=== PATIENT | female | born 1940 | race Caucasian/White ===

== ENCOUNTER 2019-09-02 10:22 | Outpatient (CLI) | payer MEDICARE, OTHER, SELFPAY ==
[2019-09-02 11:07] LABS: Basophils % 0.5 %; Eosinophils # 0.1 10^3/uL (0.0-0.8); Eosinophils % 2.7 %; Hematocrit 36.4 % (37.0-47.0); Hemoglobin 10.7 g/dL (11.5-15.3); Lymphocytes # 1.1 10^3/uL (0.8-4.8); Mean Corpuscular HGB Conc 29.4 g/dL (30.0-36.0); Mean Corpuscular Hemoglobin 24.9 pg (28.0-34.0); Mean Corpuscular Volume 84.8 fL (81-99); Mean Platelet Volume 10.9 fL (7.4-10.4); Monocytes # 0.5 10^3/uL (0.2-0.9); Neutrophils # 2.69 10^3/uL (1.8-7.7); Neutrophils % 60.8 %; Nucleated Red Blood Cells % 0 %; Platelet Count 266 10^3/cmm (130-400); Red Blood Count 4.29 10^6/uL (4.1-5.3); White Blood Count 4.4 10^3/uL (4.0-10.0)
[2019-09-02 11:32] LABS: Carcinoembryonic Antigen 2.1 ng/mL (0.0-4.7)
[2019-09-02 11:43] LABS: Alanine Aminotransferase 17 U/L (0-33); Albumin Level 4.1 g/dL (3.5-5.2); Alkaline Phosphatase 70 IU/L (35-105); Anion Gap 14.2 (5-19); Aspartate Amino Transferase 27 U/L (0-32); Blood Urea Nitrogen 12 mg/dL (8-23); Calcium 8.6 mg/dL (8.5-10.5); Carbon Dioxide 25 mmol/L (22-29); Chloride 103 mmol/L (98-107); Globulin 3.4 g/dL (1.3-4.6); Glucose 113 mg/dL (65-115); Osmolality Calculated 283 mOsm/kg (285-295); Potassium 4.2 mmol/L (3.5-5.1); Sodium 138 mmol/L (136-145); Total Bilirubin 1.8 mg/dL (0.15-1.2); Total Protein 7.5 g/dL (6.6-8.7)
[2019-09-02 13:00] LABS: Iron 18 ug/dL (37-145); Percent Saturation 4.1 % (20-50); Total Iron Binding Capacity 439 mcg/dl; Unsaturated Iron Binding 421 ug/dL (112-347)
--- NOTE | 2019-09-02 13:51 | ONC FU_ITS ---
Dr. Faye Patient Follow-Up Note Patient: Kelsea Wan Unit #: [id number]: 1940 Dicatated By: Mekhi Faye M.D.Date of Visit:Sep 02, 2019 Onc Med Follow-up/Prog Note Chief Complaint: Colon cancer/anemia. History of Present Illness: This is a an 79 year-old woman with multiple colon cancers, including an ascending colon cancer and a subsequent anastomotic recurrence, both of which were moderately differentiated adenocarcinoma, stage IIA (T3, N0, M0). She had presented in May [address] elevation myocardial infarction, for which she underwent emergency angioplasty/stent placement. She also was noted to be significantly anemic at that time and a subsequent colonoscopy showed a malignant appearing mass in the ascending colon. She underwent hand-assisted laparoscopic right hemicolectomy in July of 2010. She had a T3 primary tumor, but no involvement in 28 lymph nodes. There was a second tumor identified in the surgical specimen, but it appeared to be arising within an adenomatous polyp and invasion was limited to the submucosa. I had seen her initially in September of 2010. I felt there was no indication for adjuvant chemotherapy. At that time, she did have a palpable area of induration in the mid abdomen just above her incision. By CT scan it appeared to be inflammatory, and it subsequently did improve. She had surveillance colonoscopy in March 2011. In April 2013 she became anemic again. She was seen by Dr. Molina, and she was found to have evidence of recurrence at the ileocolic anastomosis. On 05/04/13 she underwent a hand-assisted laparoscopic left hemicolectomy. During the procedure, she was noted to have a peritoneal nodule on the dome of the gallbladder, and a cholecystectomy also was performed. In addition, the procedure included bilateral salpingo-oophorectomy due to concerns of possible hereditary non-polyposis colon cancer. She tolerated the procedure well. Pathology showed moderately differentiated (grade 2) colonic adenocarcinoma with invasion focally through the muscularis propria. The tumor measured 3 x 2.5 cm. There was no involvement in 12 lymph nodes. Mismatch Repair Protein analysis showed loss of MLH1 and PMS2 with retention of MSH2 and MSH6, consistent with loss of normal DNA mismatch repair function. She has been followed on observation/expectant management. On a followup visit in May 2014 she was again significantly anemic, with her hemoglobin at that time having dropped to 7.2 g. The red cell indices were hypochromic/microcytic and her serum iron studies showed a transferrin saturation of 1.9%. At that point she did start a course of parenteral iron replacement with Venofer. Treatment was completed on 06/28/14 to a total dose of 2400 mg. In the meantime, she also was found to have a positive stool Hemoccults. In June 2014 she underwent evaluation with upper GI endoscopy and colonoscopy by Dr. Rod Hoffman in [place]. The upper endoscopy showed a large hiatal hernia with possible Arndt's esophagus. There was evidence of antral gastritis with linear erosions. Biopsy showed benign gastric mucosa. Biopsies from the GE junction showed squamous and gastric mucosa with no evidence of metaplasia or dysplasia. The colonoscopy showed polyps at 40 cm and 20 cm as well as a flat lesion in the rectum. A biopsy at 65 cm did show a hyperplastic polyp. Biopsies of the lesions at 40 cm and 20 cm just showed superficial mucosal hyperplasia. The rectal lesion was a superficial adenomatous polyp. Her other medical illnesses include hypertension, hypercholesterolemia, coronary artery disease, and GERD. She is a nonsmoker. INTERIM HISTORY: She had surveillance EGD and colonoscopy again on 07/29/2017. There were no abnormalities noted on either study. She continued on observation/expectant management. Her surveillance CT scans on 06/04/2018 showed no evidence of recurrent or metastatic disease in the chest, abdomen, or pelvis. She is seen for a scheduled visit. She has been feeling fine. She says her energy is pretty good, but she does get tired. ECOG score is 1. She has good appetite. She has no fever or night sweats. She has some allergy related sinus symptoms and she has a little cough sometimes. She does not complain of shortness of breath. She occasionally has a little chest pain. She had one recent episode of nausea. She is not having acid reflux symptoms. She occasionally has diarrhea, but she says her bowels are okay as long as she eats right. She has not been aware of any blood in the stool. Bladder function has been okay. She has some joint pain in her hands, and she also has lower back pain. She does not complain of headache or dizziness. Her fingers get numb with cold exposure. She has no other focal neurologic symptoms. Medications: Aspirin 1 (81 mg) Tablet Oral daily, Biotin 1 (1000 mcg) Capsule Oral daily, Cholecalciferol 1 (1000 Units) Capsule Oral daily, Eye Vitamins 1 Tablet Oral daily, Fish Oil 1 (1000 mg) Capsule Oral daily, Lipitor 1 (40 mg) Tablet Oral at bedtime, Lisinopril 1 (5 mg) Tablet Oral b.i.d., Metoprolol Tartrate 1 (25 mg) Tablet Oral b.i.d., Protonix 1 (40 mg) Tablet, enteric coated Oral b.i.d., Red Yeast Rice 1 (600 mg) Tablet Oral daily Allergies: No Known Allergies. Review of Systems: Constitutional - She is feeling okay. Her energy has been pretty good, but she does get tired. Her appetite is good and weight is down a few pounds. No fever, night sweats, or hot flashes. ECOG score is 1, ENMT - She has chronic allergies. No mouth sores. No sore throat or difficulty swallowing, Hematologic/Lymphatic - She bruises easily, Respiratory - No shortness of breath. She has a slight cough related to drainage. No pleuritic pain or hemoptysis, Cardiovascular - No angina pain. No palpitations, Gastrointestinal - No nausea or vomiting. No heartburn or acid reflux. No diarrhea or constipation. No blood in the stool or black stools, Genitourinary (F) - No dysuria or hematuria. No urinary frequency. No urgency or incontinence, Musculoskeletal - She has pain in her lower back, Integumentary - No skin complications, Neurologic - No headache or dizziness. She has numbness in her fingers with cold exposure. No other focal neurologic symptoms, Psychiatric - No anxiety or depression. She sometimes doesn't sleep well. Vital Signs: Performed on Sep 02, 2019 12:21 Height - 64.00 in Weight - 183.8 lbs (LOW) BSA - 1.89 sq.m BMI - 31.55 (HIGH) Temperature - 97.7 F (LOW) Pulse - 56 /min (LOW) Respiration - 18 /min BP - 116/68 mm(hg) O2 Sat - 100 % Pain - 0 Physical Examination: Constitutional - She looks pretty good generally, Eyes - Sclerae nonicteric. Conjunctivae clear, ENMT - No lesions noted in the oral cavity, Hematologic/Lymphatic - No cervical, clavicular, or axillary adenopathy, Respiratory - Lungs are clear with good air movement bilaterally, Cardiovascular - Heart rhythm is regular. There is a II/ systolic murmur. There is no gallop or rub noted, Abdomen - Soft. Liver and spleen are not enlarged. There is no abdominal mass or ascites noted and there is no inguinal adenopathy, Extremities - Mild edema. Posterior tibial pulses are palpable bilaterally, Neurologic - No focal neurologic deficits noted. Lab/Imaging: Test performed on Sep 02, 2019 11:42 Iron 18 mcg/dL Iron Binding Capacity (TIBC) 439 mcg/dl % Iron Saturation 4.1 % UIBC 421 mcg/dL Test performed on Sep 02, 2019 10:42 Sodium 138 mmol/L Potassium 4.2 mmol/L Chloride 103 mmol/L CO2 25 mmol/L Anion Gap 14.2 BUN 12 mg/dL Creatinine 0.8 mg/dL Cr Clearance (Est) 73.82 mL/min Glucose 113 mg/dL Calcium 8.6 mg/dL Protein, Total 7.5 g/dL Albumin 4.1 g/dL Globulin 3.4 g/dL Bilirubin, Total 1.8 mg/dL ALT (SGPT) 17 U/L AST (SGOT) 27 U/L Alkaline Phosphatase 70 IU/L WBC 4.4 10 3/uL RBC 4.29 10 6/uL HGB 10.7 g/dL HCT 36.4 % MCV 84.8 fL MCH 24.9 pg MCHC 29.4 g/dL RDW 17.0 % Platelet Count 266 10 3/cmm MPV 10.9 fL Neutrophils 2.69 10 3/uL Lymphocytes 1.1 10 3/uL Monocytes 0.5 10 3/uL Eosinophils 0.1 10 3/uL Basophils 0.0 10 3/uL Neutrophil % 60.8 % Lymphocyte % 24.0 % Monocyte % 12.0 % Eosinophil % 2.7 % Basophils % 0.5 % NRBC % 0 % CEA 2.1 ng/mL Impression: 1. Patient with multiple primary colon cancers including stage IIA moderately differentiated adenocarcinoma of the ascending colon, a stage I adenocarcinoma which was discovered within an adenomatous polyp in the right colon, and a stage IIA moderately differentiated adenocarcinoma which developed at the site of the ileocolic anastomosis. 2. Her treatment included laparoscopic right hemicolectomy in July 2010 and laparoscopic left hemicolectomy in April 2013. The latter procedure also included cholecystectomy and bilateral oophorectomy. 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 3. In May 2014 she had recurrence of iron deficiency anemia associated with heme positive stools. The anemia corrected following a course of parenteral iron replacement with Venofer. She did have evidence of antral gastritis on upper endoscopy in June 2014, and there were several polyps noted on colonoscopy, including an adenomatous polyp in the rectum. However, the source of the GI blood loss was not determined with certainty. She has since then continued empiric treatment with Protonix. She reportedly had evidence of GERD again on a recent upper GI endoscopy. Her other medical illnesses include: 4. Hypertension. 5. Hyperlipidemia. 6. Coronary artery disease. She continued on observation/expectant management following the parenteral iron replacement. As of her follow-up visit in May 2018 there was no evidence of recurrence of her colon cancer and her blood counts remained adequate. She presents now with mild anemia. Her serum iron studies are again consistent with iron deficiency. She has mild fatigue. She is otherwise not symptomatic. At this point it is uncertain where the iron deficiency is due to GI blood loss or to inadequate oral iron absorption. There otherwise appears to be no evidence of recurrence of her colon cancer. Plan: She remains on observation for the colon cancer. She will begin oral iron supplementation with ferrous sulfate. I will recheck stool FIT or Hemoccult. She will need GI endoscopy studies if this is positive. If she does not tolerate iron deficiency oral iron or is unable to correct her iron deficiency with it, she will be given parenteral iron replacement with Injectafer. Signed By: Mekhi Faye M.D. <<Signature on File>>
== END 2019-09-02 10:23 | disposition home or self-care (01) ==
LOC: ONCMED 10:28
PROVIDERS: PCP Family Medicine; Visit Provider Internal Medicine Medical Oncology
DX: Z08 Encounter for follow-up examination after completed treatment for malignant neoplasm (principal); Z85.038 Personal history of other malignant neoplasm of large intestine; D50.0 Iron deficiency anemia secondary to blood loss (chronic); I10 Essential (primary) hypertension; E78.5 Hyperlipidemia, unspecified; I25.10 Atherosclerotic heart disease of native coronary artery without angina pectoris; K21.9 Gastro-esophageal reflux disease without esophagitis; Z90.49 Acquired absence of other specified parts of digestive tract
CPT/HCPCS: 80053; 82378; 83540; 83550; 85025; 99214

== ENCOUNTER 2019-10-26 13:36 | Outpatient (CLI) | payer MEDICARE, OTHER, SELFPAY ==
[2019-10-26 14:14] LABS: Basophils % 0.3 %; Eosinophils # 0.1 10^3/uL (0.0-0.8); Eosinophils % 2.1 %; Hematocrit 44.9 % (37.0-47.0); Hemoglobin 13.8 g/dL (11.5-15.3); Lymphocytes # 1.6 10^3/uL (0.8-4.8); Lymphocytes % 27.9 %; Mean Corpuscular HGB Conc 30.7 g/dL (30.0-36.0); Mean Corpuscular Hemoglobin 28.4 pg (28.0-34.0); Mean Corpuscular Volume 92.4 fL (81-99); Mean Platelet Volume 11.3 fL (7.4-10.4); Monocytes # 0.6 10^3/uL (0.2-0.9); Monocytes % 10.1 %; Neutrophils # 3.41 10^3/uL (1.8-7.7); Neutrophils % 59.4 %; Nucleated Red Blood Cells % 0 %; Platelet Count 235 10^3/cmm (130-400); Red Blood Count 4.86 10^6/uL (4.1-5.3); Red Cell Distribution Width 21.9 % (12.1-15.1); White Blood Count 5.7 10^3/uL (4.0-10.0)
[2019-10-26 14:27] LABS: Iron 45 ug/dL (37-145); Percent Saturation 12.7 % (20-50); Total Iron Binding Capacity 353 mcg/dl; Unsaturated Iron Binding 308 ug/dL (112-347)
--- NOTE | 2019-10-30 12:10 | ONC FU_ITS ---
Dr. Faye Patient Follow-Up Note Patient: Kelsea Wan Unit #: [id number]: [id number] Dicatated By: Mekhi Faye M.D.Date of Visit:Oct 26, 2019 Onc Med Follow-up/Prog Note Chief Complaint: Colon cancer/anemia. History of Present Illness: This is a an 79 year-old woman with multiple colon cancers, including an ascending colon cancer and a subsequent anastomotic recurrence, both of which were moderately differentiated adenocarcinoma, stage IIA (T3, N0, M0). She had presented in May [address] elevation myocardial infarction, for which she underwent emergency angioplasty/stent placement. She also was noted to be significantly anemic at that time and a subsequent colonoscopy showed a malignant appearing mass in the ascending colon. She underwent hand-assisted laparoscopic right hemicolectomy in July of 2010. She had a T3 primary tumor, but no involvement in 28 lymph nodes. There was a second tumor identified in the surgical specimen, but it appeared to be arising within an adenomatous polyp and invasion was limited to the submucosa. I had seen her initially in September of 2010. I felt there was no indication for adjuvant chemotherapy. At that time, she did have a palpable area of induration in the mid abdomen just above her incision. By CT scan it appeared to be inflammatory, and it subsequently did improve. She had surveillance colonoscopy in March 2011. In April 2013 she became anemic again. She was seen by Dr. Molian, and she was found to have evidence of recurrence at the ileocolic anastomosis. On 05/04/13 she underwent a hand-assisted laparoscopic left hemicolectomy. During the procedure, she was noted to have a peritoneal nodule on the dome of the gallbladder, and a cholecystectomy also was performed. In addition, the procedure included bilateral salpingo-oophorectomy due to concerns of possible hereditary non-polyposis colon cancer. She tolerated the procedure well. Pathology showed moderately differentiated (grade 2) colonic adenocarcinoma with invasion focally through the muscularis propria. The tumor measured 3 x 2.5 cm. There was no involvement in 12 lymph nodes. Mismatch Repair Protein analysis showed loss of MLH1 and PMS2 with retention of MSH2 and MSH6, consistent with loss of normal DNA mismatch repair function. She has been followed on observation/expectant management. On a followup visit in May 2014 she was again significantly anemic, with her hemoglobin at that time having dropped to 7.2 g. The red cell indices were hypochromic/microcytic and her serum iron studies showed a transferrin saturation of 1.9%. At that point she did start a course of parenteral iron replacement with Venofer. Treatment was completed on 06/28/14 to a total dose of 2400 mg. In the meantime, she also was found to have a positive stool Hemoccults. In June 2014 she underwent evaluation with upper GI endoscopy and colonoscopy by Dr. Rod Hoffman in [place]. The upper endoscopy showed a large hiatal hernia with possible Arndt's esophagus. There was evidence of antral gastritis with linear erosions. Biopsy showed benign gastric mucosa. Biopsies from the GE junction showed squamous and gastric mucosa with no evidence of metaplasia or dysplasia. The colonoscopy showed polyps at 40 cm and 20 cm as well as a flat lesion in the rectum. A biopsy at 65 cm did show a hyperplastic polyp. Biopsies of the lesions at 40 cm and 20 cm just showed superficial mucosal hyperplasia. The rectal lesion was a superficial adenomatous polyp. Her other medical illnesses include hypertension, hypercholesterolemia, coronary artery disease, and GERD. She is a nonsmoker. INTERIM HISTORY: She had surveillance EGD and colonoscopy again on 07/29/2017. There were no abnormalities noted on either study. She continued on observation/expectant management. Her surveillance CT scans on 06/04/2018 showed no evidence of recurrent or metastatic disease in the chest, abdomen, or pelvis. As of her follow-up visit in August 2019 she was mildly anemic again, hemoglobin 10.7 g. The transferrin saturation was low at 4%, consistent with iron deficiency. She was started on oral iron supplementation with ferrous sulfate. She is seen for a scheduled visit. She is feeling pretty good generally. She has noticed some improvement in her energy/activity tolerance. She is able to do light work. ECOG score is 1. She has good appetite. She has no fever or night sweats. She does not complain of shortness of breath or cough. She occasionally has a little bit of chest pain. She Katherine has no GI complaints. She does have urinary frequency. She has some lower back pain, but it does tend to get better with activity. She has a little bit of headache. She has no focal neurologic symptoms. Medications: Aspirin 1 (81 mg) Tablet Oral daily, Biotin 1 (1000 mcg) Capsule Oral daily, Cholecalciferol 1 (2000 Units) Capsule Oral daily, Docusate Calcium 1 Capsule (of 240 mg) Oral daily, Eye Vitamins 1 Tablet Oral daily, Fish Oil 1 (1000 mg) Capsule Oral daily, Iron 1 Tablet Oral daily, Lipitor 1 (40 mg) Tablet Oral at bedtime, Lisinopril 1 (5 mg) Tablet Oral b.i.d., Metoprolol Tartrate 1 (25 mg) Tablet Oral b.i.d., Protonix 1 (40 mg) Tablet, enteric coated Oral b.i.d., Red Yeast Rice 1 (600 mg) Tablet Oral daily Allergies: No Known Allergies. Review of Systems: Constitutional - Her energy is pretty good. She is able to do light work. Appetite is good and weight is stable. No fever, night sweats, or hot flashes. ECOG score is 1, ENMT - She has a runny nose.. No mouth sores. She occasionally has sore throat. No difficulty swallowing, Hematologic/Lymphatic - No abnormal bruising or bleeding, Respiratory - No shortness of breath. No cough. No pleuritic pain or hemoptysis, Cardiovascular - She occasionally has a little bit of chest pain. No palpitations, Gastrointestinal - No nausea or vomiting. No heartburn or acid reflux. She has some constipation, but bowel function is adequate with stool softeners. No blood in the stool or black stools, Genitourinary (F) - No dysuria or hematuria. She has urinary frequency. No urgency or incontinence, Musculoskeletal - She has some pain in her lower back. Does tend to get better with activity, Integumentary - No skin rash, Neurologic - She sometimes has a little bit of headache. No dizziness. No numbness or tingling. No other focal neurologic symptoms, Psychiatric - No anxiety or depression. No insomnia. Vital Signs: Performed on Oct 26, 2019 14:54 Height - 64.00 in Weight - 185.4 lbs (HIGH) BSA - 1.89 sq.m BMI - 31.82 (HIGH) Temperature - 98.4 F Pulse - 61 /min Respiration - 18 /min BP - 124/76 mm(hg) O2 Sat - 98 % Pain - 0 Physical Examination: Constitutional - She looks pretty good generally, Eyes - Sclerae nonicteric. Conjunctivae clear, ENMT - No lesions noted in the oral cavity, Hematologic/Lymphatic - No cervical, clavicular, or axillary adenopathy, Respiratory - Lungs are clear with good air movement bilaterally, Cardiovascular - Heart rhythm is regular. There is a II/ systolic murmur. There is no gallop or rub noted, Abdomen - Soft. Liver and spleen are not enlarged. There is no abdominal mass or ascites noted and there is no inguinal adenopathy, Extremities - No edema, Neurologic - No focal neurologic deficits noted. Lab/Imaging: Test performed on Oct 26, 2019 13:44 Iron 45 mcg/dL Iron Binding Capacity (TIBC) 353 mcg/dl % Iron Saturation 12.7 % UIBC 308 mcg/dL WBC 5.7 10 3/uL RBC 4.86 10 6/uL HGB 13.8 g/dL HCT 44.9 % MCV 92.4 fL MCH 28.4 pg MCHC 30.7 g/dL RDW 21.9 % Platelet Count 235 10 3/cmm MPV 11.3 fL Neutrophils 3.41 10 3/uL Lymphocytes 1.6 10 3/uL Monocytes 0.6 10 3/uL Eosinophils 0.1 10 3/uL Basophils 0.0 10 3/uL Neutrophil % 59.4 % Lymphocyte % 27.9 % Monocyte % 10.1 % Eosinophil % 2.1 % Basophils % 0.3 % NRBC % 0 % Impression: 1. Patient with multiple primary colon cancers including stage IIA moderately differentiated adenocarcinoma of the ascending colon, a stage I adenocarcinoma which was discovered within an adenomatous polyp in the right colon, and a stage IIA moderately differentiated adenocarcinoma which developed at the site of the ileocolic anastomosis. 2. Her treatment included laparoscopic right hemicolectomy in July 2010 and laparoscopic left hemicolectomy in April 2013. The latter procedure also included cholecystectomy and bilateral oophorectomy. 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 3. In May 2014 she had recurrence of iron deficiency anemia associated with heme positive stools. The anemia corrected following a course of parenteral iron replacement with Venofer. She did have evidence of antral gastritis on upper endoscopy in June 2014, and there were several polyps noted on colonoscopy, including an adenomatous polyp in the rectum. However, the source of the GI blood loss was not determined with certainty. She has since then continued empiric treatment with Protonix. She reportedly had evidence of GERD again on a recent upper GI endoscopy. Her other medical illnesses include: 4. Hypertension. 5. Hyperlipidemia. 6. Coronary artery disease. She continued on observation/expectant management following the parenteral iron replacement. As of her follow-up visit in May 2018 there was no evidence of recurrence of her colon cancer and her blood counts remained adequate. In August 2019 she had become mildly anemia, and her serum iron studies were again consistent with iron deficiency. The anemia does appear to be correcting with oral iron supplementation. The cause for the iron deficiency is uncertain. She indicates that her stool Hemoccult testing was negative, but I am not able to find documentation of that. Overall, she does appear to be doing well clinically. Thus far there has been no evidence for further recurrence of the colon cancer. Plan: She remains on observation for the colon cancer. She will continue oral iron supplementation with ferrous sulfate 325 mg daily. I will have to verify that her stool Hemoccult testing was negative. I will tentatively plan a follow-up visit in 3 months. Signed By: Mekhi Faye M.D. <<Signature on File>>
== END 2019-10-26 13:37 | disposition home or self-care (01) ==
LOC: ONCMED 13:39
PROVIDERS: PCP Family Medicine; Visit Provider Internal Medicine Medical Oncology
DX: Z08 Encounter for follow-up examination after completed treatment for malignant neoplasm (principal); Z85.038 Personal history of other malignant neoplasm of large intestine; D50.9 Iron deficiency anemia, unspecified; I10 Essential (primary) hypertension; E78.5 Hyperlipidemia, unspecified; I25.10 Atherosclerotic heart disease of native coronary artery without angina pectoris
CPT/HCPCS: 83540; 83550; 85025; 99214

== ENCOUNTER 2020-01-27 14:02 | Outpatient (CLI) | payer MEDICARE, OTHER, SELFPAY ==
[2020-01-27 14:29] LABS: Basophils % 0.6 %; Eosinophils # 0.1 10^3/uL (0.0-0.8); Eosinophils % 2.6 %; Hematocrit 46.5 % (37.0-47.0); Hemoglobin 14.6 g/dL (11.5-15.3); Lymphocytes # 1.5 10^3/uL (0.8-4.8); Lymphocytes % 30.2 %; Mean Corpuscular HGB Conc 31.4 g/dL (30.0-36.0); Mean Corpuscular Hemoglobin 31.9 pg (28.0-34.0); Mean Corpuscular Volume 101.5 fL (81-99); Mean Platelet Volume 10.6 fL (7.4-10.4); Monocytes # 0.6 10^3/uL (0.2-0.9); Monocytes % 11.3 %; Neutrophils # 2.77 10^3/uL (1.8-7.7); Neutrophils % 55.1 %; Nucleated Red Blood Cells % 0 %; Platelet Count 225 10^3/cmm (130-400); Red Blood Count 4.58 10^6/uL (4.1-5.3); Red Cell Distribution Width 13.2 % (12.1-15.1)
[2020-01-27 14:45] LABS: Alanine Aminotransferase 21 U/L (0-33); Albumin Level 3.9 g/dL (3.5-5.2); Alkaline Phosphatase 79 IU/L (35-105); Aspartate Amino Transferase 26 U/L (0-32); Blood Urea Nitrogen 11 mg/dL (8-23); Calcium 9.2 mg/dL (8.5-10.5); Carbon Dioxide 29 mmol/L (22-29); Chloride 100 mmol/L (98-107); Globulin 3.1 g/dL (1.3-4.6); Glucose 106 mg/dL (65-115); Iron 69 ug/dL (37-145); Osmolality Calculated 284 mOsm/kg (285-295); Percent Saturation 20.9 % (20-50); Sodium 137 mmol/L (136-145); Total Bilirubin 1.2 mg/dL (0.15-1.2); Total Iron Binding Capacity 329 mcg/dl; Unsaturated Iron Binding 260 ug/dL (112-347)
[2020-01-27 15:27] LABS: Carcinoembryonic Antigen 2.5 ng/mL (0.0-4.7)
--- NOTE | 2020-01-28 08:24 | ONC FU_ITS ---
Dr. Faye Patient Follow-Up Note Patient: Kelsea Wan Unit #: [id number]: 1940 Dicatated By: Mekhi Faye M.D.Date of Visit:Jan 27, 2020 Onc Med Follow-up/Prog Note Chief Complaint: Colon cancer/anemia. History of Present Illness: This is a an 79 year-old woman with multiple colon cancers, including an ascending colon cancer and a subsequent anastomotic recurrence, both of which were moderately differentiated adenocarcinoma, stage IIA (T3, N0, M0). She had presented in May [address] elevation myocardial infarction, for which she underwent emergency angioplasty/stent placement. She also was noted to be significantly anemic at that time and a subsequent colonoscopy showed a malignant appearing mass in the ascending colon. She underwent hand-assisted laparoscopic right hemicolectomy in July of 2010. She had a T3 primary tumor, but no involvement in 28 lymph nodes. There was a second tumor identified in the surgical specimen, but it appeared to be arising within an adenomatous polyp and invasion was limited to the submucosa. I had seen her initially in September of 2010. I felt there was no indication for adjuvant chemotherapy. At that time, she did have a palpable area of induration in the mid abdomen just above her incision. By CT scan it appeared to be inflammatory, and it subsequently did improve. She had surveillance colonoscopy in March 2011. In April 2013 she became anemic again. She was seen by Dr. Molina, and she was found to have evidence of recurrence at the ileocolic anastomosis. On 05/04/13 she underwent a hand-assisted laparoscopic left hemicolectomy. During the procedure, she was noted to have a peritoneal nodule on the dome of the gallbladder, and a cholecystectomy also was performed. In addition, the procedure included bilateral salpingo-oophorectomy due to concerns of possible hereditary non-polyposis colon cancer. She tolerated the procedure well. Pathology showed moderately differentiated (grade 2) colonic adenocarcinoma with invasion focally through the muscularis propria. The tumor measured 3 x 2.5 cm. There was no involvement in 12 lymph nodes. Mismatch Repair Protein analysis showed loss of MLH1 and PMS2 with retention of MSH2 and MSH6, consistent with loss of normal DNA mismatch repair function. She has been followed on observation/expectant management. On a followup visit in May 2014 she was again significantly anemic, with her hemoglobin at that time having dropped to 7.2 g. The red cell indices were hypochromic/microcytic and her serum iron studies showed a transferrin saturation of 1.9%. At that point she did start a course of parenteral iron replacement with Venofer. Treatment was completed on 06/28/14 to a total dose of 2400 mg. In the meantime, she also was found to have a positive stool Hemoccults. In June 2014 she underwent evaluation with upper GI endoscopy and colonoscopy by Dr. Rod Hoffman in [place]. The upper endoscopy showed a large hiatal hernia with possible Arndt's esophagus. There was evidence of antral gastritis with linear erosions. Biopsy showed benign gastric mucosa. Biopsies from the GE junction showed squamous and gastric mucosa with no evidence of metaplasia or dysplasia. The colonoscopy showed polyps at 40 cm and 20 cm as well as a flat lesion in the rectum. A biopsy at 65 cm did show a hyperplastic polyp. Biopsies of the lesions at 40 cm and 20 cm just showed superficial mucosal hyperplasia. The rectal lesion was a superficial adenomatous polyp. Her other medical illnesses include hypertension, hypercholesterolemia, coronary artery disease, and GERD. She is a nonsmoker. INTERIM HISTORY: She had surveillance EGD and colonoscopy again on 07/29/2017. There were no abnormalities noted on either study. She continued on observation/expectant management. Her surveillance CT scans on 06/04/2018 showed no evidence of recurrent or metastatic disease in the chest, abdomen, or pelvis. As of her follow-up visit in August 2019 she was mildly anemic again, hemoglobin 10.7 g. The transferrin saturation was low at 4%, consistent with iron deficiency. She responded adequately to oral iron supplementation with ferrous sulfate. Her stool Hemoccult was negative. She is seen for a scheduled visit. She has been feeling pretty good generally. Her main complaint is that she had noticed a little blood in her urine on a couple of occasions. She has undergone some evaluation for it at [facility]. I do not have any of those records available. She has limited activity, but she is still doing light work. ECOG score is 1. She has good appetite. She has no fever or night sweats. She has no shortness of breath, cough, or chest pain. She has no GI complaints. She currently has no bladder symptoms. She has been having some lower back pain. She also has some right shoulder pain. She has no focal neurologic symptoms. Medications: Aspirin 1 (81 mg) Tablet Oral daily, Biotin 1 (1000 mcg) Capsule Oral daily, Cholecalciferol 1 (2000 Units) Capsule Oral daily, Docusate Calcium 1 Capsule (of 240 mg) Oral daily, Eye Vitamins 1 Tablet Oral daily, Fish Oil 1 (1000 mg) Capsule Oral daily, Iron 1 Tablet Oral daily, Lipitor 1 (40 mg) Tablet Oral at bedtime, Lisinopril 1 (5 mg) Tablet Oral b.i.d., Metoprolol Tartrate 1 (25 mg) Tablet Oral b.i.d., Protonix 1 (40 mg) Tablet, enteric coated Oral b.i.d., Red Yeast Rice 1 (600 mg) Tablet Oral daily Allergies: No Known Allergies. Review of Systems: Constitutional - She has been feeling pretty good generally, though she does have limited activity. Appetite is good and weight is stable. No fever, night sweats, or hot flashes. ECOG score is 1, ENMT - She has a runny nose. No mouth sores. No sore throat or difficulty swallowing, Hematologic/Lymphatic - No abnormal bruising or bleeding, Respiratory - No shortness of breath. No cough. No pleuritic pain or hemoptysis, Cardiovascular - No angina pain. No palpitations, Gastrointestinal - No nausea or vomiting. No heartburn or acid reflux. No diarrhea or constipation. No blood in the stool or black stools, Genitourinary (F) - She has had a little blood in her urine on a couple of occasions. She underwent evaluation at [facility] in [place]. She currently has no bladder symptoms, Musculoskeletal - She has had some lower back pain. She also has pain in her right shoulder, Integumentary - No skin rash, Neurologic - No headache or dizziness. No numbness or tingling. No other focal neurologic symptoms, Psychiatric - No anxiety or depression. No insomnia. Vital Signs: Performed on Jan 27, 2020 14:41 Height - 64.00 in Weight - 187.4 lbs (HIGH) BSA - 1.90 sq.m BMI - 32.17 (HIGH) Temperature - 99.6 F (HIGH) Pulse - 66 /min Respiration - 20 /min BP - 166/76 mm(hg) (HIGH) O2 Sat - 99 % Pain - 0 Physical Examination: Constitutional - She looks pretty good generally, Eyes - Sclerae nonicteric. Conjunctivae clear, ENMT - No lesions noted in the oral cavity, Hematologic/Lymphatic - No cervical, clavicular, or axillary adenopathy, Respiratory - Lungs are clear with good air movement bilaterally, Cardiovascular - Heart rhythm is regular. There is a II/ systolic murmur. There is no gallop or rub noted, Abdomen - Soft. Liver and spleen are not enlarged. There is no abdominal mass or ascites noted and there is no inguinal adenopathy, Extremities - Slight edema. Dorsalis pedis pulses are palpable bilaterally, Neurologic - No focal neurologic deficits noted. Lab/Imaging: Test performed on Jan 27, 2020 14:13 Iron 69 mcg/dL Sodium 137 mmol/L Iron Binding Capacity (TIBC) 329 mcg/dl Potassium 4.0 mmol/L % Iron Saturation 20.9 % Chloride 100 mmol/L CO2 29 mmol/L UIBC 260 mcg/dL Anion Gap 12.0 BUN 11 mg/dL Creatinine 0.9 mg/dL Cr Clearance (Est) 66.9000 mL/min Glucose 106 mg/dL Osmolality - Calculated 284 mOsm/kg Calcium 9.2 mg/dL Protein, Total 7.0 g/dL Albumin 3.9 g/dL Globulin 3.1 g/dL Bilirubin, Total 1.2 mg/dL ALT (SGPT) 21 U/L AST (SGOT) 26 U/L Alkaline Phosphatase 79 IU/L WBC 5.0 10 3/uL RBC 4.58 10 6/uL HGB 14.6 g/dL HCT 46.5 % MCV 101.5 fL MCH 31.9 pg MCHC 31.4 g/dL RDW 13.2 % Platelet Count 225 10 3/cmm MPV 10.6 fL Neutrophils 2.77 10 3/uL Lymphocytes 1.5 10 3/uL Monocytes 0.6 10 3/uL Eosinophils 0.1 10 3/uL Basophils 0.0 10 3/uL Neutrophil % 55.1 % Lymphocyte % 30.2 % Monocyte % 11.3 % Eosinophil % 2.6 % Basophils % 0.6 % NRBC % 0 % CEA 2.5 ng/mL Impression: 1. Patient with multiple primary colon cancers including stage IIA moderately differentiated adenocarcinoma of the ascending colon, a stage I adenocarcinoma which was discovered within an adenomatous polyp in the right colon, and a stage IIA moderately differentiated adenocarcinoma which developed at the site of the ileocolic anastomosis. 2. Her treatment included laparoscopic right hemicolectomy in July 2010 and laparoscopic left hemicolectomy in April 2013. The latter procedure also included cholecystectomy and bilateral oophorectomy. 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 3. In May 2014 she had recurrence of iron deficiency anemia associated with heme positive stools. The anemia corrected following a course of parenteral iron replacement with Venofer. She did have evidence of antral gastritis on upper endoscopy in June 2014, and there were several polyps noted on colonoscopy, including an adenomatous polyp in the rectum. However, the source of the GI blood loss was not determined with certainty. She has since then continued empiric treatment with Protonix. She reportedly had evidence of GERD again on a recent upper GI endoscopy. Her other medical illnesses include: 4. Hypertension. 5. Hyperlipidemia. 6. Coronary artery disease. She continued on observation/expectant management following the parenteral iron replacement. As of her follow-up visit in May 2018 there was no evidence of recurrence of her colon cancer and her blood counts remained adequate. In August 2019 she had become mildly anemia, and her serum iron studies were again consistent with iron deficiency. The anemia responded adequately to oral iron supplementation. A specific cause for the iron deficiency was not determined, but her stool Hemoccult testing was negative. She has otherwise been doing well clinically, though recently she did require some evaluation for hematuria. Thus far there has been no evidence of recurrence of her colon cancer. Plan: She remains on observation for the colon cancer. She will continue oral iron supplementation with ferrous sulfate 325 mg daily. I will obtain records from [place]. She will be scheduled for surveillance CT scans as indicated. She will be scheduled for a follow-up visit in 6 months. Signed By: Mekhi Faye M.D. <<Signature on File>>
== END 2020-01-27 14:03 | disposition home or self-care (01) ==
PROVIDERS: PCP Family Medicine; Visit Provider Internal Medicine Medical Oncology
DX: Z08 Encounter for follow-up examination after completed treatment for malignant neoplasm (principal); Z85.038 Personal history of other malignant neoplasm of large intestine; D50.9 Iron deficiency anemia, unspecified; K21.9 Gastro-esophageal reflux disease without esophagitis; I10 Essential (primary) hypertension; E78.5 Hyperlipidemia, unspecified; I25.10 Atherosclerotic heart disease of native coronary artery without angina pectoris; Z79.899 Other long term (current) drug therapy
CPT/HCPCS: 36415; 80053; 82378; 83540; 83550; 85025; G0463

== ENCOUNTER 2020-04-28 12:18 | Outpatient (CLI) | payer MEDICARE, OTHER, SELFPAY ==
--- NOTE | 2020-04-28 13:30 | USCV_ITS ---
Kelsea Wan Age: 79 Gender: F : 1940 Exam Date: 04/28/2020 12:55 Ordering Phys: Obed Ryan MD ([email or web address]) Technologist: TREVON Exam Location: [facility] [place] Indication: non rheumatic aortic valve BP: / HR: 67 Rhythm: Sinus Technical Quality: Adequate MEASUREMENTS (Male / Female) Normal Values 2D ECHO LV Diastolic Diameter PLAX 3.7 cm 4.2 - 5.9 / 3.9 - 5.3 cm LV Systolic Diameter PLAX 2.9 cm LV Chamber Size 3.9 cm IVS Diastolic Thickness 1.5 cm 0.6 - 1.0 / 0.6 - 0.9 cm IVS Systolic Thickness 1.6 cm LVPW Diastolic Thickness 1.5 cm 0.6 - 1.0 / 0.6 - 0.9 cm LVPW Systolic Thickness 1.4 cm RV Chamber Size 3.4 cm LVOT Diameter 2.0 cm LV Ejection Fraction 2D Teich 48.5 % LV Ejection Fraction MOD 2C 56.5 % LV Ejection Fraction 2C AL 55.2 % LA Diameter 3.2 cm LA Width 2.7 cm LA Height 5.2 cm RA Width 3.1 cm RA Height 4.3 cm Aorta at Sinotubular Diameter 1.8 cm M-MODE LV Diastolic Diameter MM 4.6 cm 4.2 - 5.9 / 3.9 - 5.3 cm LV Systolic Diameter MM 3.5 cm LV Ejection Fraction MM Teich 49.8 % IVS Diastolic Thickness MM 1.4 cm 0.6 - 1.0 / 0.6 - 0.9 cm IVS Systolic Thickness MM 1.5 cm LVPW Diastolic Thickness MM 1.2 cm 0.6 - 1.0 / 0.6 - 0.9 cm LVPW Systolic Thickness MM 1.3 cm Aortic Annulus Diameter 2.7 cm LA Ao Ratio MM 1.4 MV E Point Septal Separation 1.2 cm DOPPLER AV Peak Velocity 162.3 cm/s LVOT Peak Velocity 108.0 cm/s AV Area Cont Eq vti 2.2 cm squared AV Area Cont Eq pk 2.1 cm squared MV Area PHT 3.1 cm squared Mitral E to A Ratio 0.8 MV E' Velocity 56.0 cm/s Mitral E to MV E' Ratio 12.3 Mitral E to LV E' Lateral Ratio 9.4 Mitral E to LV E' Septal Ratio 18.0 TR Peak Velocity 239.0 cm/s TR Peak Gradient 22.8 mmHg TV Peak E Velocity 85.0 cm/s Right Atrial Pressure 3.0 mmHg Pulmonary Artery Systolic Pressu 25.8 mmHg PV Peak Velocity 114.0 cm/s RV Acceleration Time 0.2 s RV Ejection Time 0.4 s RV AcT/ET 0.4 FINDINGS Left Ventricle Normal left ventricular cavity size. Normal left ventricular systolic function. No regional wall motion abnormalities. Left ventricular ejection fraction is estimated at 50 %. Grade I/IV diastolic dysfunction (abnormal relaxation filling pattern), normal to mildly elevated filling pressures. Right Ventricle The right ventricle is normal in size and function. Right Atrium The right atrium is normal in size. Left Atrium The left atrium is normal in size. Mitral Valve Structurally normal mitral valve without significant stenosis or prolapse. There is no mitral regurgitation. Aortic Valve Moderate aortic valve calcification. No aortic valve stenosis. No aortic valve regurgitation. Tricuspid Valve Structurally normal tricuspid valve without significant stenosis or regurgitation. Pulmonary artery systolic pressure is normal. Pulmonic Valve Structurally normal pulmonic valve without significant stenosis. There is no pulmonic regurgitation. Pericardium Normal pericardium without effusion. Aorta Normal ascending aorta dimension. CONCLUSIONS 1-Normal left ventricular cavity size. Normal left ventricular systolic function. No regional wall motion abnormalities. Left ventricular ejection fraction is estimated at 60 %. Grade I/IV diastolic dysfunction (abnormal relaxation filling pattern), normal to mildly elevated filling pressures. 2-Moderate aortic valve calcification. No aortic valve stenosis. No aortic valve regurgitation. 3-No significant valve abnormalities. 4-There is no pericardial effusion. 5-Pulmonary artery systolic pressure is within normal limits. 6-Right atrial pressure is around mm of mercury. 7-When compared to the prior echocardiogram dated September 10, 2018 left ventricle ejection fraction has increased from moderately reduced 45% to normal 50 to 55% now Obed Ryan MD (Electronically Signed) Final Date: 28 April 2020 21:13 S
== END 2020-04-28 12:19 | disposition home or self-care (01) ==
LOC: RAD 12:25
PROVIDERS: PCP Family Medicine; Visit Provider Internal Medicine Cardiovascular Disease
DX: I35.0 Nonrheumatic aortic (valve) stenosis (principal); I10 Essential (primary) hypertension
CPT/HCPCS: 93306

== ENCOUNTER 2020-07-27 11:13 | Outpatient (CLI) | payer MEDICARE, OTHER, SELFPAY ==
[2020-07-27 11:54] LABS: Basophils % 0.4 %; Eosinophils # 0.2 10^3/uL (0.0-0.8); Eosinophils % 3.1 %; Hemoglobin 14.5 g/dL (11.5-15.3); Lymphocytes # 1.4 10^3/uL (0.8-4.8); Lymphocytes % 26.2 %; Mean Corpuscular HGB Conc 32.2 g/dL (30.0-36.0); Mean Corpuscular Hemoglobin 32.7 pg (28.0-34.0); Mean Corpuscular Volume 101.4 fL (81-99); Mean Platelet Volume 10.4 fL (7.4-10.4); Monocytes # 0.6 10^3/uL (0.2-0.9); Monocytes % 11.9 %; Neutrophils # 3.02 10^3/uL (1.8-7.7); Neutrophils % 58.2 %; Nucleated Red Blood Cells % 0 %; Platelet Count 213 10^3/cmm (130-400); Red Blood Count 4.44 10^6/uL (4.1-5.3); Red Cell Distribution Width 12.7 % (12.1-15.1); White Blood Count 5.2 10^3/uL (4.0-10.0)
[2020-07-27 12:24] LABS: Alanine Aminotransferase 22 U/L (0-33); Albumin Level 3.9 g/dL (3.5-5.2); Alkaline Phosphatase 74 IU/L (35-105); Anion Gap 12.3 (5-19); Aspartate Amino Transferase 28 U/L (0-32); Blood Urea Nitrogen 11 mg/dL (8-23); Calcium 8.7 mg/dL (8.5-10.5); Carbon Dioxide 29 mmol/L (22-29); Chloride 101 mmol/L (98-107); Globulin 3.1 g/dL (1.3-4.6); Glucose 102 mg/dL (65-115); Iron 64 ug/dL (37-145); Osmolality Calculated 286 mOsm/kg (285-295); Percent Saturation 20.7 % (20-50); Potassium 4.3 mmol/L (3.5-5.1); Sodium 138 mmol/L (136-145); Total Bilirubin 1.6 mg/dL (0.15-1.2); Total Iron Binding Capacity 309 mcg/dl; Unsaturated Iron Binding 245 ug/dL (112-347)
[2020-07-27 13:01] LABS: Carcinoembryonic Antigen 2.2 ng/mL (0.0-4.7)
--- NOTE | 2020-07-31 06:21 | ONC FU_ITS ---
Dr. Faye Patient Follow-Up Note Patient: Kelsea Wan Unit #: [id number]: 1940 Dicatated By: Mekhi Faye M.D.Date of Visit:Jul 27, 2020 Onc Med Follow-up/Prog Note Chief Complaint: Colon cancer/anemia. History of Present Illness: This is a an 80 year-old woman with multiple colon cancers, including an ascending colon cancer and a subsequent anastomotic recurrence, both of which were moderately differentiated adenocarcinoma, stage IIA (T3, N0, M0). She had presented in May [address] elevation myocardial infarction, for which she underwent emergency angioplasty/stent placement. She also was noted to be significantly anemic at that time and a subsequent colonoscopy showed a malignant appearing mass in the ascending colon. She underwent hand-assisted laparoscopic right hemicolectomy in July of 2010. She had a T3 primary tumor, but no involvement in 28 lymph nodes. There was a second tumor identified in the surgical specimen, but it appeared to be arising within an adenomatous polyp and invasion was limited to the submucosa. I had seen her initially in September of 2010. I felt there was no indication for adjuvant chemotherapy. At that time, she did have a palpable area of induration in the mid abdomen just above her incision. By CT scan it appeared to be inflammatory, and it subsequently did improve. She had surveillance colonoscopy in March 2011. In April 2013 she became anemic again. She was seen by Dr. Molina, and she was found to have evidence of recurrence at the ileocolic anastomosis. On 05/04/13 she underwent a hand-assisted laparoscopic left hemicolectomy. During the procedure, she was noted to have a peritoneal nodule on the dome of the gallbladder, and a cholecystectomy also was performed. In addition, the procedure included bilateral salpingo-oophorectomy due to concerns of possible hereditary non-polyposis colon cancer. She tolerated the procedure well. Pathology showed moderately differentiated (grade 2) colonic adenocarcinoma with invasion focally through the muscularis propria. The tumor measured 3 x 2.5 cm. There was no involvement in 12 lymph nodes. Mismatch Repair Protein analysis showed loss of MLH1 and PMS2 with retention of MSH2 and MSH6, consistent with loss of normal DNA mismatch repair function. She has been followed on observation/expectant management. On a followup visit in May 2014 she was again significantly anemic, with her hemoglobin at that time having dropped to 7.2 g. The red cell indices were hypochromic/microcytic and her serum iron studies showed a transferrin saturation of 1.9%. At that point she did start a course of parenteral iron replacement with Venofer. Treatment was completed on 06/28/14 to a total dose of 2400 mg. In the meantime, she also was found to have a positive stool Hemoccults. In June 2014 she underwent evaluation with upper GI endoscopy and colonoscopy by Dr. Rod Hoffman in [place]. The upper endoscopy showed a large hiatal hernia with possible Arndt's esophagus. There was evidence of antral gastritis with linear erosions. Biopsy showed benign gastric mucosa. Biopsies from the GE junction showed squamous and gastric mucosa with no evidence of metaplasia or dysplasia. The colonoscopy showed polyps at 40 cm and 20 cm as well as a flat lesion in the rectum. A biopsy at 65 cm did show a hyperplastic polyp. Biopsies of the lesions at 40 cm and 20 cm just showed superficial mucosal hyperplasia. The rectal lesion was a superficial adenomatous polyp. Her other medical illnesses include hypertension, hypercholesterolemia, coronary artery disease, and GERD. She is a nonsmoker. INTERIM HISTORY: She had surveillance EGD and colonoscopy again on 07/29/2017. There were no abnormalities noted on either study. She continued on observation/expectant management. Her surveillance CT scans on 06/04/2018 showed no evidence of recurrent or metastatic disease in the chest, abdomen, or pelvis. As of her follow-up visit in August 2019 she was mildly anemic again, hemoglobin 10.7 g. The transferrin saturation was low at 4%, consistent with iron deficiency. She responded adequately to oral iron supplementation with ferrous sulfate. Her stool Hemoccult was negative. She is seen for a scheduled visit. She has been feeling good generally. She has pretty good energy and activity tolerance. Her ECOG score is 1. She has good appetite. She has no fever or night sweats. She has had some allergy related sinus symptoms. She does not complain of shortness of breath or cough. She occasionally has a little chest pain. She currently has no GI or complaints. She has been having a little bit of joint pain, mainly in the shoulders. She does not complain of headache. She occasionally has dizziness. She has no focal neurologic symptoms. Medications: Aspirin 1 (81 mg) Tablet Oral daily, Biotin 1 (1000 mcg) Capsule Oral daily, Cholecalciferol 1 (2000 Units) Capsule Oral daily, Docusate Calcium 1 Capsule (of 240 mg) Oral daily, Eye Vitamins 1 Tablet Oral daily, Fish Oil 1 (1000 mg) Capsule Oral daily, Iron 1 Tablet Oral daily, Lipitor 1 (40 mg) Tablet Oral at bedtime, Lisinopril 1 (5 mg) Tablet Oral b.i.d., Metoprolol Tartrate 1 (25 mg) Tablet Oral b.i.d., Protonix 1 (40 mg) Tablet, enteric coated Oral b.i.d., Red Yeast Rice 1 (600 mg) Tablet Oral daily Allergies: No Known Allergies. Vital Signs: Performed on Jul 27, 2020 15:25 Height - 64.00 in Weight - 185.6 lbs (LOW) BSA - 1.89 sq.m BMI - 31.86 (HIGH) Temperature - 96.3 F (LOW) Pulse - 56 /min (LOW) Respiration - 18 /min BP - 220/70 mm(hg) (HIGH) O2 Sat - 99 % Pain - 0 Fatigue - 0 Physical Examination: Constitutional - She looks pretty good generally, Eyes - Sclerae nonicteric. Conjunctivae clear, ENMT - No lesions noted in the oral cavity, Hematologic/Lymphatic - No cervical, clavicular, or axillary adenopathy, Respiratory - Lungs are clear with good air movement bilaterally, Cardiovascular - Heart rhythm is regular. There is a II/ systolic murmur. There is no gallop or rub noted, Abdomen - Soft. Liver and spleen are not enlarged. There is no abdominal mass or ascites noted and there is no inguinal adenopathy, Extremities - Slight edema, Neurologic - No focal neurologic deficits noted. Lab/Imaging: Test performed on Jul 27, 2020 11:36 Iron 64 mcg/dL Sodium 138 mmol/L Iron Binding Capacity (TIBC) 309 mcg/dl Potassium 4.3 mmol/L % Iron Saturation 20.7 % Chloride 101 mmol/L CO2 29 mmol/L UIBC 245 mcg/dL Anion Gap 12.3 BUN 11 mg/dL Creatinine 0.8 mg/dL Cr Clearance (Est) 73.30 mL/min Glucose 102 mg/dL Osmolality - Calculated 286 mOsm/kg Calcium 8.7 mg/dL Protein, Total 7.0 g/dL Albumin 3.9 g/dL Globulin 3.1 g/dL Bilirubin, Total 1.6 mg/dL ALT (SGPT) 22 U/L AST (SGOT) 28 U/L Alkaline Phosphatase 74 IU/L WBC 5.2 10 3/uL RBC 4.44 10 6/uL HGB 14.5 g/dL HCT 45.0 % MCV 101.4 fL MCH 32.7 pg MCHC 32.2 g/dL RDW 12.7 % Platelet Count 213 10 3/cmm MPV 10.4 fL Neutrophils 3.02 10 3/uL Lymphocytes 1.4 10 3/uL Monocytes 0.6 10 3/uL Eosinophils 0.2 10 3/uL Basophils 0.0 10 3/uL Neutrophil % 58.2 % Lymphocyte % 26.2 % Monocyte % 11.9 % Eosinophil % 3.1 % Basophils % 0.4 % NRBC % 0 % CEA 2.2 ng/mL Problem List: 1. Patient with multiple primary colon cancers including stage IIA moderately differentiated adenocarcinoma of the ascending colon, a stage I adenocarcinoma which was discovered within an adenomatous polyp in the right colon, and a stage IIA moderately differentiated adenocarcinoma which developed at the site of the ileocolic anastomosis. 2. Her treatment included laparoscopic right hemicolectomy in July 2010 and laparoscopic left hemicolectomy in April 2013. The latter procedure also included cholecystectomy and bilateral oophorectomy. 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 3. In May 2014 she had recurrence of iron deficiency anemia associated with heme positive stools. The anemia corrected following a course of parenteral iron replacement with Venofer. She did have evidence of antral gastritis on upper endoscopy in June 2014, and there were several polyps noted on colonoscopy, including an adenomatous polyp in the rectum. However, the source of the GI blood loss was not determined with certainty. She has since then continued empiric treatment with Protonix. She reportedly had evidence of GERD again on a recent upper GI endoscopy. 4. Hypertension. 5. Hyperlipidemia. 6. Coronary artery disease. Problems Addressed with this Encounter and Plan: 1. Patient with multiple primary colon cancers, including stage IIA moderately differentiated adenocarcinoma of the ascending colon, a stage I adenocarcinoma which was discovered within an adenomatous polyp in the right colon, and a stage IIA moderately differentiated adenocarcinoma which developed at the site of the ileocolic anastomosis. Her treatment included laparoscopic right hemicolectomy in July 2010 and laparoscopic left hemicolectomy in April 2013. The latter procedure also included cholecystectomy and bilateral oophorectomy. 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 She remains on observation for the colon cancer. She was then followed expectantly. During follow-up her overall clinical status has remained stable, thus far with no evidence for any further recurrence of the colon cancer. She will continue expectant management. She is due now for surveillance colonoscopy, and that will be scheduled with Dr. Khan. She will otherwise just continue her regular follow-up with Dr. Lemus. I will see her again only as needed. 2. In May 2014 she had recurrence of iron deficiency anemia associated with heme positive stools. The anemia corrected following a course of parenteral iron replacement with Venofer. She did have evidence of antral gastritis on upper endoscopy in June 2014, and there were several polyps noted on colonoscopy, including an adenomatous polyp in the rectum. However, the source of the GI blood loss was not determined with certainty. She then continued empiric treatment with Protonix. She reportedly had evidence of GERD again on a subsequent upper GI endoscopy. In August 2019 she had become mildly anemia, and her serum iron studies were again consistent with iron deficiency. The anemia responded adequately to oral iron supplementation. A specific cause for the iron deficiency was not determined, but her stool Hemoccult testing was negative. She will stop the ferrous sulfate now and just continue taking a multivitamin with iron. She will continue her regular follow-up with Dr. Lemus. Signed By: Mekhi Faye M.D. <<Signature on File>>
== END 2020-07-27 11:14 | disposition home or self-care (01) ==
LOC: ONCMED 11:18
PROVIDERS: PCP Family Medicine; Visit Provider Internal Medicine Medical Oncology
DX: Z08 Encounter for follow-up examination after completed treatment for malignant neoplasm (principal); Z85.038 Personal history of other malignant neoplasm of large intestine; D50.0 Iron deficiency anemia secondary to blood loss (chronic); K21.9 Gastro-esophageal reflux disease without esophagitis; I10 Essential (primary) hypertension; E78.5 Hyperlipidemia, unspecified; I25.10 Atherosclerotic heart disease of native coronary artery without angina pectoris; Z79.899 Other long term (current) drug therapy
CPT/HCPCS: 80053; 82378; 83540; 83550; 85025; 99214

== ENCOUNTER → 2020-09-06 13:13 | Outpatient (BNVA) | payer MEDICARE, OTHER, SELFPAY | PROVIDERS: PCP Family Medicine; Visit Provider Surgery | DX: Z85.038 Personal history of other malignant neoplasm of large intestine (principal); Z20.822 Contact with and (suspected) exposure to COVID-19 | CPT/HCPCS: 87635 ==

== ENCOUNTER 2020-09-11 05:43 | Day surgery (SDC) | payer MEDICARE, OTHER, SELFPAY ==
[2020-09-07 13:31] VITALS: BMI 31.7
[2020-09-11 06:09] VITALS: BP 156/71; PULSE 62; RESP 18; TEMP 36.5; O2SAT 96
[2020-09-11] MEDS: sodium chloride 0.9% 1,000 ML 30 ML IV (06:09)
--- NOTE | 2020-09-11 06:45 | W.PM.OPSFHP ---
Same Day Surgery H&P Indication for Procedure/HPI DATE OF PROCEDURE: September 11, 2020 CHIEF COMPLAINT/INDICATIONFOR SURGICAL PROCEDURE: colonoscopy PREOP DIAGNOSIS: colon cancer PLANNED PROCEDRUE: Operation Date: 09/11/20 07:00 Proposed Procedures p Colonoscopy 98631 z85.038(Not Applicable) - Darshan Khan MD Medications/Allergies* Home Medications Medication Instructions Recorded Confirmed Type aspirin 81 mg tablet,delayed 81 mg PO DAILY tab 02/25/19 09/11/20 History release cholecalciferol (vitamin D3) 25 1,000 unit PO DAILY cap 02/25/19 09/11/20 History mcg (1,000 unit) capsule pantoprazole 40 mg tablet,delayed 40 mg PO BID tab 02/25/19 09/11/20 History release omega-3 fatty acids 1,000 mg 1,000 mg PO DAILY 06/03/19 09/11/20 History capsule red yeast rice 600 mg tablet 600 mg PO DAILY 06/03/19 09/11/20 History vitamins A,C,D-fkns-pwahnj 7,160 2 tab PO BID 06/03/19 09/11/20 History unit-113 mg-100 unit tablet allipemc-kub-tdzj-FA-lutein 1 tab PO DAILY 09/07/20 09/11/20 History [[employer]] valsartan 160 mg PO BID 09/07/20 09/11/20 History Allergies/Adverse Reactions Allergy/AdvReac Type Severity Reaction Status Date / Time No Known Allergies Allergy Verified 09/11/20 06:10 Current Medications: Generic Name Dose Route Start Last Admin Trade Name Freq PRN Reason Stop Dose Admin Sodium Chloride 1,000 mls @ 30 mls/hr 09/11/20 06:00 09/11/20 06:09 Sodium Chloride 0.9% IV 09/12/20 05:59 30 mls/hr .Q24H BLAISE Administration Pertinent History/Comorbid Conditions* Medical History (Updated 08/07/20 @ 10:26 by Darshan Khan MD) Coronary artery disease History of colon cancer History of myocardial infarction HTN (hypertension) Hypercholesterolemia Surgical History (Updated 08/07/20 @ 10:26 by Darshan Khan MD) H/O colonoscopy H/O esophagogastroduodenoscopy H/O right hemicolectomy History of coronary artery stent placement S/P bilateral salpingo-oophorectomy S/P cholecystectomy S/P left hemicolectomy Family History (Updated 02/25/19 @ 11:10 by Emi Borrego LPN) Heart disease Cancer Brother Sister Social History Smoking and tobacco status: never smoked Pertinent Exam Findings alert and oriented x 3 Recommendations Surgery/Procedure today Coding Level of Care Code Acute Electro Mechanical Technologist for Lizy Haynes
--- NOTE | 2020-09-11 06:53 | ANES.PREANE2 ---
Pre-Anesthetic Assessment Pre-Anesthetic Assessment: Height/Weight: Height 1.63 m Weight 83.915 kg Temp Pulse Resp BP Pulse Ox 97.7 F 62 18 156/71 96 09/11/20 06:09 09/11/20 06:09 09/11/20 06:09 09/11/20 06:09 09/11/20 06:09 Preop Diagnosis: colon cancer Proposed Procedure: Operation Date: 09/11/20 07:00 Proposed Procedures p Colonoscopy 66968 z85.038(Not Applicable) - Darshan Khan MD Was Beta Yousif taken within 24 hours: Yes Was Clonidine taken within 24 hours: N/A Last intake: Intake Last Liquid Date 09/10/20 Last Liquid Time 20:00 Last Solid Date 09/09/20 Social: Social History: No alcohol and No tobacco Exam: Pre-Anes Outpt Exam: alert, oriented x 3, clear to auscultation bilaterally and regular rate & rhythm Airway: Submandibular: WNL Cervical ROM: WNL MP: 2 Dentition: Full History/ROS: No significant history except as noted and No significant complaints Pulmonary: Pulmonary: None reported CV/HEM: CV/HEM: CAD and HTN : : None reported Hepatic: Hepatic: None reported GI: Comments: Hx colon CA Metabolic: Metabolic: None reported Musc/skel: Musc/skel: None reported Neuropsych: Neuropsych: None reported Anesthetic Plan: ASA status: 3 Anesthesia: MAC Risk of > 500 ml blood loss (7ml/kg in children): No Meds/Allergies Current Medications: Current Medications Generic Name Dose Route Start Last Admin Trade Name Freq PRN Reason Stop Dose Admin Sodium Chloride 1,000 mls @ 30 ml s/hr 09/11/20 06:00 09/11/20 06:09 Sodium Chloride 0.9% IV 09/12/20 05:59 30 mls/hr .Q24H BLAISE Administration PFSH Anesthesia PFSH: Medical History (Updated 08/07/20 @ 10:26 by Darshan Khan MD) Coronary artery disease History of colon cancer History of myocardial infarction HTN (hypertension) Hypercholesterolemia Surgical History (Updated 08/07/20 @ 10:26 by Darshan Khan MD) H/O colonoscopy H/O esophagogastroduodenoscopy H/O right hemicolectomy History of coronary artery stent placement S/P bilateral salpingo-oophorectomy S/P cholecystectomy S/P left hemicolectomy Family History Brother Cancer Sister Cancer Other Heart disease Social History Smoking and tobacco status: never smoked Data Anesthesia Cardiac Studies: No Data to Display
[2020-09-11 07:15] VITALS: BP 112/50; PULSE 59; RESP 18; TEMP 36.6; O2SAT 100
[2020-09-11 07:34] VITALS: BP 148/64; PULSE 60; RESP 16; TEMP 36.8; O2SAT 100
--- NOTE | 2020-09-11 19:23 | ANE.PACU2 ---
Inpatient post-anesthesia follow up: Airway intact: Yes Vital signs: Temperature 98.2 F Pulse Rate 60 Respiratory Rate 16 Blood Pressure 148/64 Pulse Oximetry 100 Oxygen Delivery Me thod Room Air Oxygen Flow Rate 3 Fraction of Inspir ed Oxygen Hydration adequate: Yes Nausea and vomiting: No Pain level: 2 Mental status: Baseline
== END 2020-09-11 08:00 | disposition home or self-care (01) ==
PROVIDERS: PCP Family Medicine; Visit Provider Surgery
PROC: 0DJD8ZZ Inspection of Lower Intestinal Tract, Via Natural or Artificial Opening Endoscopic (ICD-10-PCS; CPT 45378; principal; 2020-09-11 07:00)
DX: Z85.038 Personal history of other malignant neoplasm of large intestine (principal); Z90.49 Acquired absence of other specified parts of digestive tract; K63.5 Polyp of colon; K64.8 Other hemorrhoids; K57.30 Diverticulosis of large intestine without perforation or abscess without bleeding; I25.10 Atherosclerotic heart disease of native coronary artery without angina pectoris; I10 Essential (primary) hypertension; I25.2 Old myocardial infarction; E78.00 Pure hypercholesterolemia, unspecified
CPT/HCPCS: 45380; 88305; 96360; 96361; J2704; J7030

== ENCOUNTER → 2021-04-25 10:04 | Outpatient (BNVA) | payer MEDICARE, OTHER, SELFPAY | PROVIDERS: PCP Family Medicine; Visit Provider Internal Medicine Cardiovascular Disease | DX: I25.10 Atherosclerotic heart disease of native coronary artery without angina pectoris (principal); E78.00 Pure hypercholesterolemia, unspecified; I10 Essential (primary) hypertension; I35.8 Other nonrheumatic aortic valve disorders | CPT/HCPCS: 99214; 99215 ==

== ENCOUNTER → 2022-04-15 09:39 | Outpatient (BNVA) | payer MEDICARE, OTHER, SELFPAY | PROVIDERS: PCP Family Medicine; Visit Provider Internal Medicine Cardiovascular Disease | DX: I25.10 Atherosclerotic heart disease of native coronary artery without angina pectoris (principal); R07.89 Other chest pain; I10 Essential (primary) hypertension; E78.00 Pure hypercholesterolemia, unspecified; I35.8 Other nonrheumatic aortic valve disorders; M79.89 Other specified soft tissue disorders; Z79.82 Long term (current) use of aspirin | CPT/HCPCS: 99214 ==

== ENCOUNTER 2022-05-08 07:29 | Outpatient (CLI) | payer MEDICARE, OTHER, SELFPAY ==
--- NOTE | 2022-05-08 07:45 | USCV_ITS ---
Kelsea Wan Age: 81 Gender: F : 1940 Exam Date: 05/08/2022 07:54 Ordering Phys: Fabienne Kenney MD ([email or web address]) Technologist: CT [place] [facility] [place]ication: SWELLING PROCEDURES: Venous duplex imaging was performed in only the left lower extremity. In addition, the posterior tibial and peroneal trunk were evaluated. On the left side, the common femoral, superficial femoral, profunda femoral, popliteal, posterior tibial, greater saphenous veins, and the peroneal trunk were identified and interrogated in the standard fashion. These veins were found to be easily compressible with spontaneous blood flow. No evidence of insufficiency or thrombus noted. FINDINGS: NORMAL US CONCLUSIONS No evidence of left lower extremity DVT. Adiel Morfin MD (Electronically Signed) Final Date: 08 May 2022 12:30 S
== END 2022-05-08 07:30 | disposition home or self-care (01) ==
LOC: RAD 07:32
PROVIDERS: PCP Family Medicine; Visit Provider Internal Medicine Cardiovascular Disease
DX: M79.89 Other specified soft tissue disorders (principal)
CPT/HCPCS: 93971; 99214

== ENCOUNTER → 2022-11-04 10:02 | Outpatient (BNVA) | payer MEDICARE, OTHER, SELFPAY | PROVIDERS: PCP Family Medicine; Visit Provider Internal Medicine Cardiovascular Disease | DX: I25.10 Atherosclerotic heart disease of native coronary artery without angina pectoris (principal); I35.8 Other nonrheumatic aortic valve disorders; I10 Essential (primary) hypertension; E78.00 Pure hypercholesterolemia, unspecified | CPT/HCPCS: 99214 ==

== ENCOUNTER → 2023-05-27 09:45 | Outpatient (BNVA) | payer MEDICARE, OTHER, SELFPAY | PROVIDERS: PCP Family Medicine; Visit Provider Internal Medicine Cardiovascular Disease | DX: I25.10 Atherosclerotic heart disease of native coronary artery without angina pectoris (principal); E78.00 Pure hypercholesterolemia, unspecified; I35.8 Other nonrheumatic aortic valve disorders; I10 Essential (primary) hypertension; M79.89 Other specified soft tissue disorders | CPT/HCPCS: 99214 ==

== ENCOUNTER → 2023-11-27 09:22 | Outpatient (BNVA) | payer MEDICARE, OTHER, SELFPAY | PROVIDERS: PCP Family Medicine; Visit Provider Internal Medicine Cardiovascular Disease | DX: I25.10 Atherosclerotic heart disease of native coronary artery without angina pectoris (principal); I10 Essential (primary) hypertension; E78.00 Pure hypercholesterolemia, unspecified; I35.8 Other nonrheumatic aortic valve disorders; M79.89 Other specified soft tissue disorders; I25.2 Old myocardial infarction | CPT/HCPCS: 99214 ==

== ENCOUNTER → 2024-07-01 10:49 | Outpatient (BNVA) | payer MEDICARE, OTHER, SELFPAY | PROVIDERS: PCP Family Medicine; Visit Provider Internal Medicine Cardiovascular Disease | DX: I25.10 Atherosclerotic heart disease of native coronary artery without angina pectoris (principal); I10 Essential (primary) hypertension; E78.00 Pure hypercholesterolemia, unspecified; I35.0 Nonrheumatic aortic (valve) stenosis; M79.89 Other specified soft tissue disorders; Z79.82 Long term (current) use of aspirin; Z95.5 Presence of coronary angioplasty implant and graft; I25.2 Old myocardial infarction; R06.09 Other forms of dyspnea | CPT/HCPCS: 99214 ==

== ENCOUNTER 2024-08-11 14:29 | Outpatient (CLI) | payer MEDICARE, OTHER, SELFPAY ==
--- NOTE | 2024-08-11 15:00 | USCV_ITS ---
Kelsea Wan Age: 84 Gender: F : 1940 Exam Date: 08/11/2024 15:17 Ordering Phys: Fabienne Kenney MD ([email or web address]) Technologist: Exam Location: [facility] [place] Indication: murmr sob cp BP: 132 / 75 HR: 68 Rhythm: Sinus Technical Quality: Adequate MEASUREMENTS (Male / Female) Normal Values 2D ECHO LV Diastolic Diameter PLAX 3.4 cm 4.2 - 5.9 / 3.9 - 5.3 cm IVS Diastolic Thickness 1.5 cm 0.6 - 1.0 / 0.6 - 0.9 cm IVS Systolic Thickness 1.9 cm LVPW Diastolic Thickness 1.6 cm 0.6 - 1.0 / 0.6 - 0.9 cm LVPW Systolic Thickness 1.8 cm LVOT Diameter 2.1 cm LV Ejection Fraction 2D Teich 52.1 % LV Ejection Fraction MOD 4C 62.1 % LV Ejection Fraction MOD 2C 66.2 % LV Ejection Fraction 2C AL 65.5 % LA Diameter 4.0 cm RA Systolic Volume 4C AL 48.8 ml RA Systolic Volume 4C MOD 47.3 ml Aorta at Sinotubular Diameter 3.1 cm M-MODE LA Ao Ratio MM 1.4 AV Cusp Separation MM 1.8 cm DOPPLER AV Peak Velocity 176.0 cm/s LVOT Peak Velocity 96.0 cm/s AV Area Cont Eq vti 1.9 cm squared AV Area Cont Eq pk 1.9 cm squared MV Peak Velocity 120.0 cm/s TV Peak Velocity 230.5 cm/s TR Peak Velocity 273.0 cm/s TR Peak Gradient 29.8 mmHg TV Peak E Velocity 126.0 cm/s PV Peak Velocity 194.0 cm/s FINDINGS Left Ventricle Normal left ventricular size and systolic function, EF 62%.no regional wall motion abnormalities. Right Ventricle The right ventricle is normal in size and function. Right Atrium Left Atrium Mildly increased left atrial size. Mitral Valve Trace mitral valve regurgitation. Aortic Valve Mild aortic valve regurgitation. Thickened aortic valve. Tricuspid Valve Trace tricuspid valve regurgitation. Estimated pulmonary artery peak systolic pressure 33 mmHg Pulmonic Valve Pulmonic valve not well visualized. Pericardium Normal pericardium without effusion. Aorta Normal ascending aorta dimension. IVC Inferior vena cava not visualized. CONCLUSIONS Normal left ventricular size and systolic function, EF 62%.no regional wall motion abnormalities. Mildly increased left atrial size. Trace mitral valve regurgitation. Mild aortic valve regurgitation. Thickened aortic valve. Trace tricuspid valve regurgitation. Estimated pulmonary artery peak systolic pressure 33 mmHg. There is no pericardial effusion. There are no intracardiac masses. Compared to the previous study from 04/28/2020, the LV ejection fraction continues to improve from 50- 55% to 62% Dr Fabienne Kenney MD [facility] (Electronically Signed) Final Date: 15 August 2024 13:50 S
== END 2024-08-11 14:30 | disposition home or self-care (01) ==
LOC: RAD 14:32
PROVIDERS: PCP Family Medicine; Visit Provider Internal Medicine Cardiovascular Disease
DX: R06.09 Other forms of dyspnea (principal); I51.7 Cardiomegaly; I35.1 Nonrheumatic aortic (valve) insufficiency; I35.8 Other nonrheumatic aortic valve disorders
CPT/HCPCS: 93306